=== PATIENT | male | born 1950 | race Caucasian/White ===

== ENCOUNTER 2019-05-24 10:45 | Inpatient (IN) | payer MEDICARE, BC ==
[~2019-05-24] VITALS: Ht 177.8 cm; Wt 87.2 kg
[2019-05-24] MEDS ORDERED: LACTATED RINGERS 1,000 ML IV SCH (13:10)
[2019-05-24 13:15] VITALS: BP 125/85
[2019-05-24 13:26] LABS: ANION GAP 8 mmol/L (5-15); CHLORIDE 108 mmol/L (98-107); CREATININE 1.25 mg/dL (0.7-1.3)
[2019-05-24] MEDS ORDERED: MONT10TA6 PO (13:30)
[2019-05-24] MEDS ORDERED: ATOR40TA PO (13:30)
[2019-05-24] MEDS ORDERED: CLOP75TA52 PO (13:30)
[2019-05-24 14:12] LABS: MEAN CORPUSCULAR HEMOGLOBIN 39.1 pg (27.5-34.5); MEAN CORPUSCULAR HGB CONC 34.5 g/dL (33.2-36.2); MEAN CORPUSCULAR VOLUME 113.6 fL (81-97); RED CELL DISTRIBUTION WIDTH 15.2 % (9.4-14.8)
[2019-05-24 14:14] LABS: BASOPHILS # (AUTO) 0.03 x10^3/uL (0-0.1); BASOPHILS % (AUTO) 1 % (0-1); EOSINOPHILS # (AUTO) 0.06 x10^3/uL (0-0.4); EOSINOPHILS % (AUTO) 1 % (1-7); LYMPHOCYTES # (AUTO) 1.57 x10^3/uL (1-3.4); LYMPHOCYTES % (AUTO) 33 % (22-44); MD SCAN; MONOCYTES # (AUTO) 0.29 x10^3/uL (0.2-0.8); MONOCYTES % (AUTO) 6 % (2-9); NEUTROPHILS # (AUTO) 2.77 x10^3/uL (1.8-6.8); NEUTROPHILS % (AUTO) 59 % (42-75)
[2019-05-24 14:18] LABS: PLATELET COUNT 90 x10^3/uL (130-400)
[2019-05-24] MEDS ORDERED: HEPARIN 1,000 UNITS/ML, 10ML ONE (14:43)
[2019-05-24] MEDS ORDERED: PAPAVERINE 30 MG/ML, 2ML ONE (14:43)
[2019-05-24] MEDS ORDERED: PROTAMINE SULFATE 10 MG/ML, 5ML ONE (14:43)
[2019-05-24] MEDS ORDERED: LIDOCAINE 1%, 20ML ONE (14:43)
[2019-05-24] MEDS ORDERED: BUPIVACAINE/PF 0.5% ONE (14:43)
[2019-05-24] MEDS ORDERED: EPINEPHRINE 1 MG/ML, 1ML ONE (14:43)
[2019-05-24] MEDS ORDERED: THROMBIN 5,000 UNIT VIAL TP ONE (14:43)
[2019-05-24] MEDS ORDERED: PROPOFOL 50 ML ONE (14:48)
[2019-05-24] MEDS ORDERED: FENTANYL PF 250 MCG/5ML ONE (14:53)
[2019-05-24] MEDS ORDERED: PHENYLEPHRINE 10 MG/ML ONE (15:35)
[2019-05-24] MEDS ORDERED: CEFAZOLIN 1,000 MG ONE ×2 (15:35→16:40)
[2019-05-24] MEDS ORDERED: DEXAMETHASONE 4 MG/ML, 1ML ONE (16:40)
[2019-05-24] MEDS ORDERED: ROCURONIUM 10MG/ML,5ML ONE (16:40)
[2019-05-24] MEDS ORDERED: ONDANSETRON 2MG/ML, 2ML ONE (16:40)
[2019-05-24] MEDS ORDERED: PROPOFOL 10 MG/ML, 20ML ONE (16:40)
[2019-05-24] MEDS ORDERED: FENTANYL PF 100 MCG/2ML ONE (16:41)
[2019-05-24] MEDS ORDERED: SUCCINYLCHOLINE 20 MG/ML, 10ML ONE (16:41)
[2019-05-24] MEDS ORDERED: MIDAZOLAM 1 MG/ML, 2ML IV PRN (17:30)
[2019-05-24] MEDS ORDERED: hydrALAzine 20 MG/ML, 1ML IV PRN ×2 (17:30→20:30)
[2019-05-24] MEDS ORDERED: MORPHINE SULFATE 4 MG/ML, 1ML IVPush PRN (17:30)
[2019-05-24] MEDS ORDERED: DIPHENHYDRAMINE 50 MG/ML, 1ML IVPush PRN (17:30)
[2019-05-24] MEDS ORDERED: OXYcodone 5 MG/5 ML ORAL.SOL UDC PO PRN (17:30)
[2019-05-24] MEDS ORDERED: EPHEDRINE 50 MG/ML, 1ML IM PRN (17:30)
[2019-05-24] MEDS ORDERED: ALBUTEROL/IPRATROPIUM 2.5MG/0.5MG, 3 ML NPPB PRN (17:30)
[2019-05-24] MEDS ORDERED: ONDANSETRON 2MG/ML, 2ML IV PRN ×2 (17:30→20:00)
[2019-05-24] MEDS ORDERED: PROMETHAZINE 25 MG/ML, 1ML IV PRN (17:30)
[2019-05-24] MEDS ORDERED: DIAZEPAM 5 MG/ML, 2ML IVPush PRN (17:30)
[2019-05-24] MEDS ORDERED: EPHEDRINE 50 MG/ML, 1ML IVPush PRN (17:30)
[2019-05-24] MEDS ORDERED: MEPERIDINE/PF 25MG/ML,1ML IVPush PRN (17:30)
[2019-05-24] MEDS ORDERED: ONDANSETRON ODT 8 MG PO PRN (17:30)
[2019-05-24] MEDS ORDERED: FENTANYL PF 100 MCG/2ML IV PRN (17:30)
[2019-05-24 19:50] VITALS: BP 161/90
[2019-05-24] MEDS ORDERED: ACETAMINOPHEN 325 MG TABLET PO PRN (20:00)
[2019-05-24] MEDS ORDERED: HYDROcodone/APAP 5/325 TABLET PO PRN (20:00)
[2019-05-24] MEDS ORDERED: LABETALOL 5MG/ML, 20ML IVPush PRN (20:00)
[2019-05-24] MEDS ORDERED: morphine SULFATE 10 MG/ML, 1ML IV PRN (20:00)
[2019-05-24] MEDS ORDERED: ATORVASTATIN 40 MG TABLET PO SCH (21:00)
[2019-05-24] MEDS: SODIUM CHLORIDE FLUSH 10ML SYR IVF SCH (21:49)
[2019-05-24] MEDS: LACTATED RINGERS 1,000 ML IV SCH (21:49)
[2019-05-25 00:03] VITALS: BP 125/70
[2019-05-25] MEDS: CEFAZOLIN 2,000 MG in SODIUM CHLORIDE 0.9% 50 ML IVPB SCH ×2 (00:16→07:59)
[2019-05-25 04:00] VITALS: BP 110/65
[2019-05-25] MEDS ORDERED: METOPROLOL TARTRATE 25 MG TABLET PO SCH (06:00)
[2019-05-25 06:48] VITALS: BP 148/80
[2019-05-25] MEDS: SODIUM CHLORIDE FLUSH 10ML SYR IVF SCH (07:59)
[2019-05-25] MEDS: LACTATED RINGERS 1,000 ML IV SCH (07:59)
[2019-05-25] MEDS ORDERED: CLOPIDOGREL 75 MG TABLET PO SCH (09:00)
[2019-05-25] MEDS ORDERED: METO25TA35 PO (10:47)
[2019-05-25 11:00] VITALS: BP 136/74
== END 2019-05-25 11:20 | disposition home or self-care (01) | DRG 39 ==
LOC: ORIP 12:22 → 4NE 19:26 → DCLOUNGE 05-25 11:09
PROVIDERS: ADMIT Surgery; ATTEND Surgery
PROC: 03CH0ZZ Extirpation of Matter from Right Common Carotid Artery, Open Approach (ICD-10-PCS; 2019-05-24)
PROC: 03UH0KZ Supplement Right Common Carotid Artery with Nonautologous Tissue Substitute, Open Approach (ICD-10-PCS; 2019-05-24)
PROC: 03UK0KZ Supplement Right Internal Carotid Artery with Nonautologous Tissue Substitute, Open Approach (ICD-10-PCS; 2019-05-24)
PROC: 03CM0ZZ Extirpation of Matter from Right External Carotid Artery, Open Approach (ICD-10-PCS; 2019-05-24)
PROC: 03HY32Z Insertion of Monitoring Device into Upper Artery, Percutaneous Approach (ICD-10-PCS; 2019-05-24)
PROC: 03CK0ZZ Extirpation of Matter from Right Internal Carotid Artery, Open Approach (ICD-10-PCS; principal; 2019-05-24 15:00)
DX: I65.23 Occlusion and stenosis of bilateral carotid arteries (principal); E78.5 Hyperlipidemia, unspecified; R13.10 Dysphagia, unspecified; E11.42 Type 2 diabetes mellitus with diabetic polyneuropathy; F10.10 Alcohol abuse, uncomplicated
CPT/HCPCS: 36415; 80048; 85025; 86850; 86900; 93005; C1729; G0378; J0171; J0690; J1100; J1644; J2405; J2704; J2720; J3010; C1768; J0330; J2370; J2440; J7120